=== PATIENT | male | born 1995 | race Caucasian/White ===

== ENCOUNTER 2017-06-22 14:14 | Emergency (ER) | payer BC ==
--- NOTE | 2017-06-22 16:12 | EDM.PDOC ---
ED HPI GENERAL MEDICAL PROBLEM - General Chief Complaint: Lower Extremity Injury/Pain Stated Complaint: LEFT LEG PAIN Time Seen by Provider: 06/22/17 16:02 Source of Information: Reports: Patient History Limitations: Reports: No Limitations - History of Present Illness INITIAL COMMENTS - FREE TEXT/NARRATIVE: History of present illness: []Patient works in [employer] and has some chronic low back pain. Today he noted sharp electrical pain going down his left medial thigh. He denies any trauma, numbness or tingling, incontinence or back pain at this time. He is ambulatory and is requesting a work release note. Review of systems: As per history of present illness and below otherwise all systems reviewed and negative. Past medical history: As per history of present illness and as reviewed below otherwise noncontributory. Surgical history: As per history of present illness and as reviewed below otherwise noncontributory. Social history: No reported history of drug or alcohol abuse. Family history: As per history of present illness and as reviewed below otherwise noncontributory. Physical exam: General: Well developed, well nourished in NAD HEENT: Atraumatic, normocephalic, pupils reactive, negative for conjunctival pallor or scleral icterus, mucous membranes moist, throat clear, neck supple, nontender, trachea midline. Lungs: Clear to auscultation, breath sounds equal bilaterally, chest nontender. Heart: S1S2, regular, negative for clicks, rubs, or JVD. Abdomen: Soft, nondistended, nontender. Negative for masses or hepatosplenomegaly. Negative for costovertebral tenderness. Pelvis: Stable nontender. Genitourinary: Deferred. Rectal: Deferred. Extremities: Atraumatic, negative for cords or calf pain. Neurovascular unremarkable. Neuro: Awake, alert, oriented. Cranial nerves II through XII unremarkable. Cerebellum unremarkable. Motor and sensory unremarkable throughout. Exam nonfocal. Diagnostics: [] Therapeutics: [] Impression: []Sciatica-left thigh Plan: []Ice low back and thigh 3 times a day for 20 minutes. Follow-up primary care physician requests physical therapy and take diclofenac twice a day for pain and inflammation. Definitive disposition and diagnosis as appropriate pending reevaluation and review of above. left lower extremity Pain Score (Numeric/FACES): 8 - Related Data Allergies Allergy/AdvReac Type Severity Reaction Status Date / Time No Known Allergies Allergy Verified 06/22/17 15:41 Home Meds: Home Meds Diclofenac Sodium [IJD: Diclofenac Sodium] 75 mg PO .TWICE DAILY W MEALS #20 tab.ec 06/22/17 [Rx] Past Medical History - Past Health History Medical/Surgical History: Denies Medical/Surgical History Gastrointestinal History: Reports: GERD, Other (See Below) Other Gastrointestinal History: EGD Endocrine/Metabolic History: Reports: Obesity/BMI 30+ - Past Surgical History Head Surgeries/Procedures: Reports: None Musculoskeletal Surgical History: Reports: Other (See Below) Social & Family History - Family History Family Medical History: Noncontributory - Tobacco Use Smoking Status *Q: Never Smoker Second Hand Smoke Exposure: No - Alcohol Use Days Per Week of Alcohol Use: 0 - Recreational Drug Use Recreational Drug Use: No Drug Use in Last 12 Months: No Review of Systems - Review of Systems Review Of Systems: See Below (See history of present illness) ED EXAM, GENERAL - Physical Exam Exam: See Below (See history of present illness) Course - Vital Signs Last Recorded V/S: Last Vital Signs Temp 37.1 C 06/22/17 14:20 Pulse 70 06/22/17 14:20 Resp 18 06/22/17 14:20 BP 156/76 H 06/22/17 14:20 Pulse Ox Departure - Departure Time of Disposition: 16:13 Disposition: Home, Self-Care 01 Condition: Good Clinical Impression: Sciatica of left side - Discharge Information Prescriptions: Diclofenac Sodium [IJD: Diclofenac Sodium] 75 mg PO .TWICE DAILY W MEALS #20 tab.ec Referrals: Fior Thomas NP [Primary Care Provider] - Forms: ED Department Discharge Additional Instructions: The following information is given to patients seen in the emergency department who are being discharged to home. This information is to outline your options for follow-up care. We provide all patients seen in our emergency department with a follow-up referral. The need for follow-up, as well as the timing and circumstances, are variable depending upon the specifics of your emergency department visit. If you don't have a primary care physician on staff, we will provide you with a referral. We always advise you to contact your personal physician following an emergency department visit to inform them of the circumstance of the visit and for follow-up with them and/or the need for any referrals to a consulting specialist. The emergency department will also refer you to a specialist when appropriate. This referral assures that you have the opportunity for follow-up care with a specialist. All of these measure are taken in an effort to provide you with optimal care, which includes your follow-up. Under all circumstances we always encourage you to contact your private physician who remains a resource for coordinating your care. When calling for follow-up care, please make the office aware that this follow-up is from your recent emergency room visit. If for any reason you are refused follow-up, please contact the [facility] Emergency Department at and asked to speak to the emergency department charge nurse. Ice low back, diclofenac for pain, follow up with her primary care physician for possible physical therapy [facility] [address] [place] [id number]
== END 2017-06-22 16:21 | disposition home or self-care (01) ==
LOC: MW.ED 14:14
CPT/HCPCS: 99282; 99283

== ENCOUNTER 2017-09-01 12:03 | Emergency (ER) | payer BC, OTHER ==
[2017-09-01] MEDS ORDERED: Proparacaine 0.5% Ophth Soln 15 ML Bottle EYERT SCH (12:45)
--- NOTE | 2017-09-01 12:54 | EDM.PDOC ---
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 He did try to irrigate this at work Review of Systems: As per history of present illness and below otherwise all systems reviewed and negative. Past medical history: As per history of present illness and as reviewed below otherwise noncontributory. Surgical history: As per history of present illness and as reviewed below otherwise noncontributory. Social history: No reported history of drug or alcohol abuse. Family history: As per history of present illness and as reviewed below otherwise noncontributory. Physical exam: Alert and oriented gentleman answering questions appropriately. Speaks in full sentences without any shortness of breath. Nontoxic appearance. HEENT: Atraumatic, normocehpalic, pupils reactive, negative for conjunctival pallor or scleral icterus, mucous membranes moist, throat clear, neck supple, nontender, trachea midline. Proparacaine drops actually flush to the foreign body out . Fluorescein strip was then utilized small abrasion noted to the 6 o' clock position shallow in nature . Lungs: Clear to auscultation, breath sounds equal bilaterally, chest non tender. Heart: S1S2, regular, negative for clicks, rubs, or JVD. Abdomen: Soft, nondistended, nontender. Negative for masses or hepatossplenmegaly. Negative for costovertebral tenderness. Pelvis: Stable nontender. Genitourinary: Deferred. Rectal: Deferred Extremities: Atraumatic, negative for cords or calf pain. Neurovascular unremarkable. Neuro: Awake, alert, oriented. Cranial nerves II through XII unremarkable. Cerebellum unremarkable. Motor and sensory unremarkable throughout. Exam nonfocal. Patient tolerated all procedures well Diagnostics: [] Therapeutics: [Proparacaine Drops] Impression: [Foreign body right eye Plan: []Discharge to home Gentamicin ointment 3 times a day Tylenol No. 3 May return to work Definitive disposition and diagnosis as appropriate pending reevaluation and review of above. Right Eye Pain Score (Numeric/FACES): 5 - Related Data Allergies Allergy/AdvReac Type Severity Reaction Status Date / Time No Known Allergies Allergy Verified 06/22/17 15:41 Home Meds: Home Meds Diclofenac Sodium [IJD: Diclofenac Sodium] 75 mg PO .TWICE DAILY W MEALS #20 tab.ec 06/22/17 [Rx] Gentamicin [Gentak 0.3% Ophth Oint] 3.5 gm EYERT TID #1 tube 09/01/17 [Rx] Past Medical History - Past Health History Medical/Surgical History: Denies Medical/Surgical History Gastrointestinal History: Reports: GERD, Other (See Below) Other Gastrointestinal History: EGD Endocrine/Metabolic History: Reports: Obesity/BMI 30+ - Infectious Disease History Infectious Disease History: Reports: Chicken Pox - Past Surgical History Head Surgeries/Procedures: Reports: None Social & Family History - Family History Family Medical History: Noncontributory - Tobacco Use Smoking Status *Q: Never Smoker Second Hand Smoke Exposure: No - Caffeine Use Caffeine Use: Reports: Soda - Alcohol Use Days Per Week of Alcohol Use: 0 - Recreational Drug Use Recreational Drug Use: No Drug Use in Last 12 Months: No ED ROS GENERAL - Review of Systems Review Of Systems: ROS reveals no pertinent complaints other than HPI. ED EXAM GENERAL W FULL EYE - Physical Exam Exam: See Below (See dictation) Course - Vital Signs Last Recorded V/S: Last Vital Signs Temp 37.0 C 09/01/17 12:28 Pulse 70 09/01/17 12:28 Resp 18 09/01/17 12:28 BP 141/80 H 09/01/17 12:28 Pulse Ox 98 09/01/17 12:28 - Orders/Labs/Meds Orders: Active Orders 24 hr Category Date Time Status Proparacaine [Proparacaine 0.5% Ophth Soln] Med 09/01/17 12:45 Active 2 ml EYERT STAT Medication Orders Proparacaine HCl (Proparacaine 0.5% Ophth Soln) 2 ml EYERT STAT YUNIER Meds: Medications Generic Name Dose Route Start Last Admin Trade Name Freq PRN Reason Stop Dose Admin Proparacaine HCl 2 ml 09/01/17 12:45 Proparacaine 0.5% Ophth Soln EYERT STAT YUNIER Departure - Departure Time of Disposition: 13:04 Disposition: Home, Self-Care 01 Condition: Good Clinical Impression: Corneal abrasion Qualifiers: Encounter type: initial encounter Laterality: right Qualified Code(s): S05.01XA - Injury of conjunctiva and corneal abrasion without foreign body, right eye, initial encounter Foreign body of right eye Qualifiers: Encounter type: initial encounter Qualified Code(s): T15.91XA - Foreign body on external eye, part unspecified, right eye, initial encounter - Discharge Information Prescriptions: Gentamicin [Gentak 0.3% Ophth Oint] 3.5 gm EYERT TID #1 tube Referrals: PCP,None [Primary Care Provider] - Additional Instructions: The following information is given to patients seen in the emergency department who are being discharged to home. This information is to outline your options for follow-up care. We provide all patients seen in our emergency department with a follow-up referral. The need for follow-up, as well as the timing and circumstances, are variable depending upon the specifics of your emergency department visit. If you don't have a primary care physician on staff, we will provide you with a referral. We always advise you to contact your personal physician following an emergency department visit to inform them of the circumstance of the visit and for follow-up with them and/or the need for any referrals to a consulting specialist. The emergency department will also refer you to a specialist when appropriate. This referral assures that you have the opportunity for followup care with a specialist. All of these measure are taken in an effort to provide you with optimal care, which includes your followup. Under all circumstances we always encourage you to contact your private physician who remains a resource for coordinating your care. When calling for followup care, please make the office aware that this follow-up is from your recent emergency room visit. If for any reason you are refused follow-up, please contact the [facility] emergency department at and asked to speak to the emergency department charge nurse. Your found to have an abrasion and a foreign body in you're either a foreign body has been flushed out with normal saline Small corneal abrasion we treated with an antibiotic ointment this has been electronically sent to [facility] Prescription of Tylenol No. 3 has one every 6 hours as needed for pain #15 has been handwritten Follow-up in 2 days with your primary care provider - My Orders Last 24 Hours: My Active Orders 09/01/17 12:45 Proparacaine [Proparacaine 0.5% Ophth Soln] 2 ml EYERT STAT - Assessment/Plan Last 24 Hours: My Active Orders 09/01/17 12:45 Proparacaine [Proparacaine 0.5% Ophth Soln] 2 ml EYERT STAT
[2017-09-01] MEDS ORDERED: Diphtheria,Pertussis(Acell),Tetanus Vaccine 0.5 ML Syringe IM ONE (13:05)
[2017-09-01 13:33] VITALS: BP 133/80
== END 2017-09-01 13:35 | disposition home or self-care (01) ==
LOC: MW.ED 12:03
DX: T15.01XA Foreign body in cornea, right eye, initial encounter (principal); Z23 Encounter for immunization
CPT/HCPCS: 90471; 90715; 99282; 99283-25

== ENCOUNTER 2019-01-18 12:01 | Emergency (ER) | payer BC, OTHER ==
[2019-01-18] MEDS ORDERED: Sodium Chloride 0.9% 1,000 ML IV ONE (12:05)
--- NOTE | 2019-01-18 12:06 | EDM.PDOC ---
ED HPI GENERAL MEDICAL PROBLEM - General Chief Complaint: Syncope Stated Complaint: fainting Time Seen by Provider: 01/18/19 12:06 Source of Information: Reports: Patient History Limitations: Reports: No Limitations - History of Present Illness INITIAL COMMENTS - FREE TEXT/NARRATIVE: HISTORY AND PHYSICAL: History of present illness: Patient is a 23-year-old male who presents to the emergency room after having 3 syncopal episodes this morning. He states he woke up with some epigastric pain and had walked down to talk to his mother. He had a syncopal episode in front of her. Reports he was talking and then felling into the dog dishes; was "out for a few seconds". Shortly after he had 2 additional syncopal episodes. All 3 episodes occurred within 15 minutes of each other, each lasting 3-5 seconds. After the incident he felt diaphoretic and generalized weakness. He was not incontinent of urine or stool. He denies any chest pain, shortness of breath, cough. Does have epigastric pain but has no nausea, vomiting, diarrhea or constipation. States he has been eating and drinking appropriately. Review of systems: As per history of present illness and below otherwise all systems reviewed and negative. Past medical history: As per history of present illness and as reviewed below otherwise noncontributory. Surgical history: As per history of present illness and as reviewed below otherwise noncontributory. Social history: See social history for further information Family history: As per history of present illness and as reviewed below otherwise noncontributory. Physical exam: General: Well-developed and well-nourished 23-year-old male. Alert and oriented. Nontoxic appearing and in no acute distress. HEENT: Nontender with palpations, no abnormalities noted, normocephalic, pupils equal and reactive bilaterally, negative for conjunctival pallor or scleral icterus, mucous membranes moist, TMs normal bilaterally, throat clear, neck supple, nontender, trachea midline. No drooling or trismus noted. No meningeal signs. No hot potato voice noted. Lungs: Clear to auscultation, breath sounds equal bilaterally, chest nontender. Heart: S1S2, regular rate and rhythm without overt murmur Abdomen: Soft, nondistended, nontender. Negative for masses or hepatosplenomegaly. Negative for costovertebral tenderness. Pelvis: Stable nontender. Genitourinary: Deferred. Rectal: Deferred. Skin: Intact, warm, dry. No lesions or rashes noted. Extremities: Moves all per self, negative for cords or calf pain. Neurovascular unremarkable. Neuro: Awake, alert, oriented. Cranial nerves II through XII unremarkable. Cerebellum unremarkable. Motor and sensory unremarkable throughout. Exam nonfocal. Notes: Patient reports approximately 5 months ago he did have a syncopal episode, did not seek medical attention for further evaluation. Today he is agreeable to diagnostics. He declines the need to any abdominal imagining, he states he has had this pain chronically, and does not feel the need to have this evaluated any further. Vital signs are stable. Lab work is unremarkable. Chest x-ray shows no evidence of pneumonia or infiltrate. Head CT is within normal limits, no acute intracranial abnormalities. This information was shared with the patient and mother at bedside. We discussed the possible need for a Holter monitor or further neurological workup through our neurologist. Both patient and mom voice understanding. I did offer admission which he declines. He states he will follow closely with his primary care provider next week, Sidra Thomas. Supportive care measures were reviewed and discussed. Voices understanding and is agreeable to plan of care. Denies any further questions or concerns at this time. Diagnostics: CBC, CMP, EKG, Head CT, Orthostatic Vitals, Orthostatic vitals Therapeutics: IV fluids Prescription: None Impression: Syncope Plan: 1. Increase your oral fluids. Slow position changes 2. As we discussed you may need to have a Holter monitor, this can be ordered by your primary care provider, Sidra Thomas. He may also want to consider following up with neurology. The number is listed in your discharge packet. Please your care provider on Saturday. 3. Return to the ED as needed and as discussed. Definitive disposition and diagnosis as appropriate pending reevaluation and review of above. Onset: Today abdominal Pain Score (Numeric/FACES): 5 - Related Data Allergies Allergy/AdvReac Type Severity Reaction Status Date / Time No Known Allergies Allergy Verified 01/18/19 12:03 Home Meds: Home Meds . [No Known Home Meds] 01/18/19 [History] Past Medical History - Past Health History Medical/Surgical History: Denies Medical/Surgical History Gastrointestinal History: Reports: GERD, Other (See Below) Other Gastrointestinal History: EGD Endocrine/Metabolic History: Reports: Obesity/BMI 30+ - Infectious Disease History Infectious Disease History: Reports: Chicken Pox - Past Surgical History Head Surgeries/Procedures: Reports: None Social & Family History - Family History Family Medical History: Noncontributory - Caffeine Use Caffeine Use: Reports: Soda ED ROS GENERAL - Review of Systems Review Of Systems: ROS reveals no pertinent complaints other than HPI. - Physical Exam Exam: See Below (See dictation) Course - Vital Signs Last Recorded V/S: Last Vital Signs Temp 96.8 F 01/18/19 12:03 Pulse 101 H 01/18/19 12:03 Resp 18 01/18/19 12:03 BP 131/72 01/18/19 12:03 Pulse Ox 99 01/18/19 12:03 Orthostatic Blood Pressure [ 112/41 Standing] Orthostatic Blood Pressure [ 148/73 Sitting] Orthostatic Blood Pressure [ 121/58 Supine] - Orders/Labs/Meds Orders: Active Orders 24 hr Category Date Time Status EKG Documentation Completion [RC] STAT Care 01/18/19 12:05 Active Orthostatic Vital Signs [RC] ASDIRECTED Care 01/18/19 12:05 Active UA RFX ADÁN AND CULT IF INDIC [URIN] Stat Lab 01/18/19 12:28 Ordered Labs: Laboratory Tests 01/18/19 01/18/19 01/18/19 Range/Units 12:24 12:24 12:24 WBC 9.85 (4.0-11.0) K/uL RBC 5.27 (4.50-5.90) M/uL Hgb 15.3 (13.0-17.0) g/dL Hct 45.5 (38.0-50.0) % MCV 86.3 (80.0-98.0) fL MCH 29.0 (27.0-32.0) pg MCHC 33.6 (31.0-37.0) g/dL RDW Std Deviation 41.1 (28.0-62.0) fl RDW Coeff of Isabella 13 (11.0-15.0) % Plt Count 225 (150-400) K/uL MPV 10.70 (7.40-12.00) fL Neut % (Auto) 81.6 H (48.0-80.0) % Lymph % (Auto) 7.2 L (16.0-40.0) % Sibley % (Auto) 9.5 (0.0-15.0) % Eos % (Auto) 1.4 (0.0-7.0) % Baso % (Auto) 0.3 (0.0-1.5) % Neut # (Auto) 8.0 H (1.4-5.7) K/uL Lymph # (Auto) 0.7 (0.6-2.4) K/uL Sibley # (Auto) 0.9 H (0.0-0.8) K/uL Eos # (Auto) 0.1 (0.0-0.7) K/uL Baso # (Auto) 0.0 (0.0-0.1) K/uL Nucleated RBC % 0.0 /100WBC Nucleated RBCs # 0 K/uL Sodium 136 (136-148) mmol/L Potassium 4.2 (3.5-5.1) mmol/L Chloride 103 (98-107) mmol/L Carbon Dioxide 26.2 (21.0-32.0) mmol/L BUN 20 H (7.0-18.0) mg/dL Creatinine 1.1 (0.8-1.3) mg/dL Est Cr Clr Drug Dosing 108.76 mL/min Estimated GFR (MDRD) > 60.0 ml/min Glucose 121 H (74-106) mg/dL Calcium 9.2 (8.5-10.1) mg/dL Total Bilirubin 0.7 (0.2-1.0) mg/dL AST 23 (15-37) IU/L ALT 53 (14-63) IU/L Alkaline Phosphatase 85 (46-116) U/L Total Protein 7.4 (6.4-8.2) g/dL Albumin 4.0 (3.4-5.0) g/dL Globulin 3.4 (2.6-4.0) g/dL Albumin/Globulin Ratio 1.2 (0.9-1.6) Lipase 78 (73-393) U/L H. pylori IgG Antibody NEGATIVE (NEG) Meds: Medications Discontinued Medications Generic Name Dose Route Start Last Admin Trade Name Freq PRN Reason Stop Dose Admin Al Hydroxide/Mg Hydroxide 15 0 ml 01/18/19 12:55 01/18/19 13:21 ml/ Metoclopramide HCl 5 mg/ PO 01/18/19 12:56 5 each Lidocaine HCl 5 ml ONETIME ONE Administration Sodium Chloride 1,000 mls @ 999 mls/hr 01/18/19 12:05 01/18/19 12:27 Normal Saline IV 01/18/19 13:05 999 mls/hr STAT ONE Administration Departure - Departure Time of Disposition: 13:54 Disposition: Home, Self-Care 01 Clinical Impression: Syncope - Discharge Information Instructions: Syncope, [id number] Referrals: Fior Thomas NP [Primary Care Provider] - Forms: ED Department Discharge Additional Instructions: The following information is given to patients seen in the emergency department who are being discharged to home. This information is to outline your options for follow-up care. We provide all patients seen in our emergency department with a follow-up referral. The need for follow-up, as well as the timing and circumstances, are variable depending upon the specifics of your emergency department visit. If you don't have a primary care physician on staff, we will provide you with a referral. We always advise you to contact your personal physician following an emergency department visit to inform them of the circumstance of the visit and for follow-up with them and/or the need for any referrals to a consulting specialist. The emergency department will also refer you to a specialist when appropriate. This referral assures that you have the opportunity for follow-up care with a specialist. All of these measure are taken in an effort to provide you with optimal care, which includes your follow-up. Under all circumstances we always encourage you to contact your private physician who remains a resource for coordinating your care. When calling for follow-up care, please make the office aware that this follow-up is from your recent emergency room visit. If for any reason you are refused follow-up, please contact the [facility] Emergency Department at and asked to speak to the emergency department charge nurse. [facility] [address] [place] [address] [id number] [address] [id number] 1. Increase your oral fluids. Slow position changes 2. As we discussed you may need to have a Holter monitor, this can be ordered by your primary care provider, Sidra Thomas. He may also want to consider following up with neurology. The number is listed in your discharge packet. Please your care provider on Saturday. 3. Return to the ED as needed and as discussed. - My Orders Last 24 Hours: My Active Orders 01/18/19 12:05 EKG Documentation Completion [RC] STAT Orthostatic Vital Signs [RC] ASDIRECTED 01/18/19 12:28 UA RFX ADÁN AND CULT IF INDIC [URIN] Stat - Assessment/Plan Last 24 Hours: My Active Orders 01/18/19 12:05 EKG Documentation Completion [RC] STAT Orthostatic Vital Signs [RC] ASDIRECTED 01/18/19 12:28 UA RFX ADÁN AND CULT IF INDIC [URIN] Stat
[2019-01-18 12:54] LABS: CHLORIDE,CL 103 mmol/L (98-107); SODIUM,NA 136 mmol/L (136-148)
[2019-01-18] MEDS ORDERED: Alum Hydrox/Mag Hydrox/Simeth 15 ML, Metoclopramide 5 MG, Lidocaine 2% 5 ML PO ONE ×3 (12:55)
--- NOTE | 2019-01-18 13:51 | CT ---
INDICATION: Syncopal episodes. TECHNIQUE: Noncontrast axial images. Coronal and sagittal reconstructions. COMPARISON: None. FINDINGS: No abnormal intracranial mass effect or midline shift. No intracranial hemorrhage. No abnormal areas of attenuation within the brain. CSF spaces are age-appropriate. No acute osseous abnormality. Visualized portions of the paranasal sinuses are clear. The mastoids are clear. IMPRESSION: No CT evidence of an acute intracranial abnormality. Dictated by Lenard Sanabria MD @ 01/18/2019 1:48:48 PM Please note that all CT scans at this facility use dose modulation, iterative reconstruction, and/or weight-based dosing when appropriate to reduce radiation dose to as low as reasonably achievable. Dictated by: Lenard Sanabria MD @ 01/18/2019 13:49:13 (Electronically Signed)
[2019-01-18 14:23] VITALS: BP 117/49
== END 2019-01-18 14:23 | disposition home or self-care (01) ==
LOC: MW.ED 12:01
DX: R55 Syncope and collapse (principal)
CPT/HCPCS: 36415; 70450; 80053; 83690; 85025; 86677; 93005; 96360; 96361; 99284; A9270; J7040

== ENCOUNTER 2020-10-07 22:24 | Emergency (ER) | payer BC ==
[2020-10-07] MEDS ORDERED: Ondansetron 4 MG/2 ML SDV IVPUSH ONE (22:42)
[2020-10-07] MEDS ORDERED: Sodium Chloride 0.9% 10 ML Syringe FLUSH PRN (22:42)
[2020-10-07] MEDS ORDERED: Sodium Chloride 0.9% 1,000 ML IV ONE (22:42)
[2020-10-07] MEDS ORDERED: Ibuprofen 400 MG Tab PO ONE (22:42)
[2020-10-07] MEDS ORDERED: Sodium Chloride 0.9% 2.5 ML Syringe FLUSH PRN (22:42)
[2020-10-07] MEDS ORDERED: Acetaminophen 500 MG Tab PO ONE (22:43)
--- NOTE | 2020-10-07 22:55 | EDM.PDOC ---
ED HPI GENERAL MEDICAL PROBLEM - General Chief Complaint: Fever Stated Complaint: FEVER, VOMITTING Time Seen by Provider: 10/07/20 22:33 - History of Present Illness INITIAL COMMENTS - FREE TEXT/NARRATIVE: HISTORY AND PHYSICAL: History of present illness: This is a 25-year-old gentleman with no significant past medical history presents ER today secondary to fever x2 days. Patient reports that he went to the clinic yesterday and had a coronavirus test which was negative. Patient reports his influenza test was also negative. Patient reports that he was started on Flexeril secondary to his headaches. Patient reports that he is been taking ibuprofen 400 mg for his fever. Patient's last dose was approximately 10 PM this evening. Patient reports he had yellow productive cough with posttussive emesis. Patient reports that his emesis is usually phlegm. Patient denies any diarrhea. Patient reports he has had some mild constipation. Patient denies any abdominal pain or chest pain. Patient denies any sore throat or ear pain. Patient denies any dysuria, frequency, urgency, rash. Patient has any chest pain or abdominal pain. Review of systems: As per history of present illness and below otherwise all systems reviewed and negative. Past medical history: As per history of present illness and as reviewed below otherwise noncontributory. Surgical history: As per history of present illness and as reviewed below otherwise noncontributory. Social history: No reported history of drug or alcohol abuse. Family history: As per history of present illness and as reviewed below otherwise noncontributory. Physical exam: Constitutional: Patient is oriented to person, place, and time. Appears well- developed and well-nourished. No distress. HEENT: Moist mucous membranes, oropharynx clear without any exudates or erythema. Neck supple, no nuchal rigidity, no photophobia, no Kernig's sign or Brudzinski sign, patient does not present with signs or symptoms of be consistent with meningitis. Head: Normocephalic and atraumatic Eyes: Right eye exhibits no discharge. Left eye exhibits no discharge. No scleral icterus. Neck: Normal range of motion. No tracheal deviation present. Cardiovascular: Normal rate and regular rhythm. Pulmonary: Effort normal, no respiratory distress. No wheezing rales or rhonchi Neck supple, no nuchal rigidity, no photophobia, no Kernig's sign or Brudzinski sign, patient does not present with signs or symptoms of be consistent with meningitis. Musculoskeletal: Normal range of motion Neurologic: Alert and oriented to person, place and time. Skin: [place], warm and dry. Psychiatric: Normal mood and affect. Behavior is normal. Judgment and thought content normal. Nursing note and vital signs have been reviewed Diagnostics: CBC, CMP, chest x-ray Therapeutics: NSS x1 L Zofran 4 mg IV Tylenol 1 g p.o. Ibuprofen 400 mg p.o. Assessment and plan: Is a 25-year-old gentleman who presents ER today secondary to fevers, cough, congestion. Patient had a coronavirus test that was negative yesterday as well as influenza test that was negative yesterday. Patient reports that he does feel dehydrated. Patient was given 1 L of normal saline we will check his electrolytes as well as CBC. Patient will have a chest x-ray obtained. Patient be given antiemetics including Tylenol and an additional 400 mg of ibuprofen. Patient is clinically hemodynamically stable. Patient's labs were within normal limits. Patient's chest x-ray does not show any clear infiltrate. Question early infiltrate in the right middle lobe. Patient be started on a Z-[place]. Reassessment at the time of disposition demonstrates that the patient is in no acute distress. The patient has remained stable throughout the entire ED visit and is without objective evidence for acute process requiring urgent intervention or hospitalization. The patient is stable for discharge, counseling is provided as documented above, discussed symptomatic treatment and specific conditions for return. I have spoken with the patient/caregiver and discussed todays findings, in addition to providing specific details for the plan of care. Questions are answered and there is agreement with the plan. Definitive disposition and diagnosis as appropriate pending reevaluation and review of above. Generalized Pain Score (Numeric/FACES): 4 - Related Data Allergies Allergy/AdvReac Type Severity Reaction Status Date / Time No Known Allergies Allergy Verified 10/07/20 22:38 Home Meds: Home Meds Azithromycin [Zithromax] 250 mg PO DAILY #4 tablet 10/07/20 [Rx] Past Medical History - Past Health History Medical/Surgical History: Denies Medical/Surgical History HEENT History: Reports: None Cardiovascular History: Reports: None Respiratory History: Reports: None Gastrointestinal History: Reports: GERD, Other (See Below) Other Gastrointestinal History: EGD Genitourinary History: Reports: None Musculoskeletal History: Reports: None Neurological History: Reports: None Psychiatric History: Reports: None Endocrine/Metabolic History: Reports: Obesity/BMI 30+ Hematologic History: Reports: None Immunologic History: Reports: None Oncologic (Cancer) History: Reports: None Dermatologic History: Reports: None - Infectious Disease History Infectious Disease History: Reports: Chicken Pox - Past Surgical History Head Surgeries/Procedures: Reports: None HEENT Surgical History: Reports: None Cardiovascular Surgical History: Reports: None Respiratory Surgical History: Reports: None Male Surgical History: Reports: None Neurological Surgical History: Reports: None Musculoskeletal Surgical History: Reports: Other (See Below) Oncologic Surgical History: Reports: None Dermatological Surgical History: Reports: None Social & Family History - Family History Family Medical History: Noncontributory - Tobacco Use Tobacco Use Status *Q: Never Tobacco User Second Hand Smoke Exposure: No - Caffeine Use Caffeine Use: Reports: Soda - Recreational Drug Use Recreational Drug Use: No ED ROS GENERAL - Review of Systems Review Of Systems: See Below ED EXAM, GENERAL - Physical Exam Exam: See Below Course - Vital Signs Last Recorded V/S: Last Vital Signs Temp 101.6 F H 10/07/20 22:34 Pulse 120 H 10/07/20 22:34 Resp 18 10/07/20 22:34 BP 147/90 H 10/07/20 22:34 Pulse Ox 95 10/07/20 22:34 - Orders/Labs/Meds Orders: Active Orders 24 hr Category Date Time Status Azithromycin [Zithromax] Med 10/07/20 23:26 Once 500 mg PO Q24H ONE Sodium Chloride 0.9% [Normal Saline] 1,000 ml Med 10/07/20 22:42 Active IV .Bolus Sodium Chloride 0.9% [Saline Flush] Med 10/07/20 22:42 Active 10 ml FLUSH ASDIRECTED PRN Sodium Chloride 0.9% [Saline Flush] Med 10/07/20 22:42 Active 2.5 ml FLUSH ASDIRECTED PRN Saline Lock Insert [OM.PC] Stat Oth 10/07/20 22:42 Ordered Medication Orders Sodium Chloride (Normal Saline) 1,000 mls @ 999 mls/hr IV .Bolus ONE Stop: 10/07/20 23:42 Last Admin: 10/07/20 22:56 Dose: 999 mls/hr Documented by: [email or web address] Sodium Chloride (Saline Flush) 10 ml FLUSH ASDIRECTED PRN PRN Reason: Keep Vein Open Last Admin: 10/07/20 22:57 Dose: 10 ml Documented by: [email or web address] Sodium Chloride (Saline Flush) 2.5 ml FLUSH ASDIRECTED PRN PRN Reason: Keep Vein Open Last Admin: 10/07/20 22:57 Dose: 2.5 ml Documented by: [email or web address] Labs: Laboratory Tests 10/07/20 10/07/20 Range/Units 22:45 22:45 WBC 4.77 (4.0-11.0) K/uL RBC 5.11 (4.50-5.90) M/uL Hgb 14.5 (13.0-17.0) g/dL Hct 44.3 (38.0-50.0) % MCV 86.7 (80.0-98.0) fL MCH 28.4 (27.0-32.0) pg MCHC 32.7 (31.0-37.0) g/dL RDW Std Deviation 42.9 (28.0-62.0) fl RDW Coeff of [place]abella 14 (11.0-15.0) % Plt Count 182 (150-400) K/uL MPV 10.50 (7.40-12.00) fL Neut % (Auto) 58.1 (48.0-80.0) % Lymph % (Auto) 24.3 (16.0-40.0) % [place] % (Auto) 16.8 H (0.0-15.0) % Eos % (Auto) 0.6 (0.0-7.0) % Baso % (Auto) 0.2 (0.0-1.5) % Neut # (Auto) 2.8 (1.4-5.7) K/uL Lymph # (Auto) 1.2 (0.6-2.4) K/uL [place] # (Auto) 0.8 (0.0-0.8) K/uL Eos # (Auto) 0.0 (0.0-0.7) K/uL Baso # (Auto) 0.0 (0.0-0.1) K/uL Nucleated RBC % 0.0 /100WBC Nucleated RBCs # 0 K/uL Sodium 138 (136-148) mmol/L Potassium 3.7 (3.5-5.1) mmol/L Chloride 103 (98-107) mmol/L Carbon Dioxide 27.2 (21.0-32.0) mmol/L BUN 19 H (7.0-18.0) mg/dL Creatinine 1.3 (0.8-1.3) mg/dL Est Cr Clr Drug Dosing 90.47 mL/min Estimated GFR (MDRD) > 60.0 ml/min Glucose 121 H (74-106) mg/dL Calcium 8.5 (8.5-10.1) mg/dL Total Bilirubin 0.3 (0.2-1.0) mg/dL AST 35 (15-37) IU/L ALT 54 (14-63) IU/L Alkaline Phosphatase 71 (46-116) U/L Total Protein 7.2 (6.4-8.2) g/dL Albumin 3.9 (3.4-5.0) g/dL Globulin 3.3 (2.6-4.0) g/dL Albumin/Globulin Ratio 1.2 (0.9-1.6) Meds: Medications Generic Name Dose Route Start Last Admin Trade Name Freq PRN Reason Stop Dose Admin Sodium Chloride 1,000 mls @ 999 mls/hr 10/07/20 22:42 10/07/20 22:56 Normal Saline IV 10/07/20 23:42 999 mls/hr .Bolus ONE Administration Sodium Chloride 10 ml 10/07/20 22:42 10/07/20 22:57 Saline Flush FLUSH 10 ml ASDIRECTED PRN Administration Keep Vein Open Sodium Chloride 2.5 ml 10/07/20 22:42 10/07/20 22:57 Saline Flush FLUSH 2.5 ml ASDIRECTED PRN Administration Keep Vein Open Discontinued Medications Generic Name Dose Route Start Last Admin Trade Name Freq PRN Reason Stop Dose Admin Acetaminophen 1,000 mg 10/07/20 22:43 10/07/20 22:56 Tylenol Extra Strength PO 10/07/20 22:44 1,000 mg ONETIME ONE Administration Ibuprofen 400 mg 10/07/20 22:42 10/07/20 22:56 Motrin PO 10/07/20 22:43 400 mg ONETIME ONE Administration Ondansetron HCl 4 mg 10/07/20 22:42 10/07/20 22:56 Zofran IVPUSH 10/07/20 22:43 4 mg ONETIME ONE Administration Departure - Departure Time of Disposition: 23:27 Disposition: Home, Self-Care 01 Condition: Good Clinical Impression: Upper respiratory infection - Discharge Information Prescriptions: Azithromycin [Zithromax] 250 mg PO DAILY #4 tablet Instructions: Upper Respiratory Infection, Adult, [id number] Referrals: Timur Wang MD [Primary Care Provider] - Forms: ED Department Discharge Additional Instructions: You were seen and evaluated in the ER today secondary to your fever and cough. Your symptoms are most likely secondary to a viral upper respiratory infection. Your chest x-ray did not show any clear infiltrate. This may be an early pneumonia that is not manifested yet on the x-ray. You will be started on Zithromax as an antibiotic to help you with your infection. Please return to the ER if you have any increased shortness of breath or any other concerns. The following information is given to patients seen in the emergency department who are being discharged to home. This information is to outline your options for follow-up care. We provide all patients seen in our emergency department with a follow-up referral. The need for follow-up, as well as the timing and circumstances, are variable depending upon the specifics of your emergency department visit. If you don't have a primary care physician on staff, we will provide you with a referral. We always advise you to contact your personal physician following an emergency department visit to inform them of the circumstance of the visit and for follow-up with them and/or the need for any referrals to a consulting specialist. The emergency department will also refer you to a specialist when appropriate. This referral assures that you have the opportunity for follow-up care with a specialist. All of these measure are taken in an effort to provide you with optimal care, which includes your follow-up. Under all circumstances we always encourage you to contact your private physician who remains a resource for coordinating your care. When calling for follow-up care, please make the office aware that this follow-up is from your recent emergency room visit. If for any reason you are refused follow-up, please contact the [facility] Emergency Department at and asked to speak to the emergency department charge nurse. [facility] - Primary [facility] [address], [place] [address] [facility] [address] [place] [address] Sepsis Event Note (ED) - Evaluation Sepsis Screening Result: Possible Sepsis Risk - Focused Exam Vital Signs: Vital Signs Temp Pulse Resp BP Pulse Ox 10/07/20 22:34 101.6 F H 120 H 18 147/90 H 95 - My Orders Last 24 Hours: My Active Orders 10/07/20 22:42 Sodium Chloride 0.9% [Normal Saline] 1,000 ml IV .Bolus Sodium Chloride 0.9% [Saline Flush] 10 ml FLUSH ASDIRECTED PRN Sodium Chloride 0.9% [Saline Flush] 2.5 ml FLUSH ASDIRECTED PRN Saline Lock Insert [OM.PC] Stat 10/07/20 23:26 Azithromycin [Zithromax] 500 mg PO Q24H ONE - Assessment/Plan Last 24 Hours: My Active Orders 10/07/20 22:42 Sodium Chloride 0.9% [Normal Saline] 1,000 ml IV .Bolus Sodium Chloride 0.9% [Saline Flush] 10 ml FLUSH ASDIRECTED PRN Sodium Chloride 0.9% [Saline Flush] 2.5 ml FLUSH ASDIRECTED PRN Saline Lock Insert [OM.PC] Stat 10/07/20 23:26 Azithromycin [Zithromax] 500 mg PO Q24H ONE
[2020-10-07 23:17] LABS: BLOOD UREA NITROGEN,BUN 19 mg/dL (7.0-18.0); CARBON DIOXIDE,CO2 27.2 mmol/L (21.0-32.0); CHLORIDE,CL 103 mmol/L (98-107); GLUCOSE RANDOM 121 mg/dL (74-106); POTASSIUM,K 3.7 mmol/L (3.5-5.1); SODIUM,NA 138 mmol/L (136-148)
--- NOTE | 2020-10-07 23:19 | CR ---
INDICATION: Fever COMPARISON: None available. FINDINGS: PA and lateral views of the chest were obtained. The lungs are clear. No focal or diffuse infiltrates are present. The heart is normal in size. The mediastinum is normal in appearance. The osseous structures are normal in appearance for the patient`s age. IMPRESSION: Normal chest 2 views. Dictated by Moses Ordaz MD @ Oct 07 2020 11:17PM Signed by Dr. Moses Ordaz @ Oct 07 2020 11:18PM
[2020-10-07] MEDS ORDERED: Azithromycin 250 MG Tab PO ONE (23:26)
[2020-10-07 23:50] VITALS: BP 105/56; PULSE 86
== END 2020-10-08 | disposition home or self-care (01) ==
LOC: MW.ED 22:24
DX: J06.9 Acute upper respiratory infection, unspecified (principal); E66.9 Obesity, unspecified; Z68.37 Body mass index [BMI] 37.0-37.9, adult
CPT/HCPCS: 36415; 71046; 80053; 85025; 96374; 99283; A9270; J2405; J7030

== ENCOUNTER 2023-08-16 23:09 | Emergency (ER) | payer BC ==
[2023-08-16] MEDS ORDERED: Ibuprofen 600 MG Tab PO ONE (23:57)
[2023-08-17 00:36] LABS: BASOPHILS ABSOLUTE AUTO 0.1 K/uL (0.0-0.1); BASOPHILS PERCENT AUTO 0.5 % (0.0-1.5); EOSINOPHILS ABSOLUTE AUTO 0.4 K/uL (0.0-0.7); EOSINOPHILS PERCENT AUTO 3.6 % (0.0-7.0); HEMATOCRIT 44.1 % (38.0-50.0); HEMOGLOBIN 14.5 g/dL (13.0-17.0); LYMPHOCYTES ABSOLUTE AUTO 3.2 K/uL (0.6-2.4); LYMPHOCYTES PERCENT AUTO 28.8 % (16.0-40.0); MEAN CORPUSCULAR HEMOGLOBIN 28.1 pg (27.0-32.0); MEAN CORPUSCULAR HGB CONC 32.9 g/dL (31.0-37.0); MEAN CORPUSCULAR VOLUME 85.5 fL (80.0-98.0); MONOCYTES ABSOLUTE AUTO 1.1 K/uL (0.0-0.8); MONOCYTES PERCENT AUTO 9.6 % (0.0-15.0); NEUTROPHILS ABSOLUTE AUTO 6.4 K/uL (1.4-5.7); NEUTROPHILS PERCENT AUTO 57.5 % (48.0-80.0); PLATELET COUNT,PLT 269 K/uL (150-400); RED BLOOD CELL COUNT 5.16 M/uL (4.50-5.90); WHITE BLOOD CELL COUNT,WBC 11.15 K/uL (4.0-11.0)
[2023-08-17 01:19] LABS: A/G RATIO 1.2 (0.9-1.6); ALBUMIN 4.1 g/dL (3.4-5.0); BILIRUBIN TOTAL 0.4 mg/dL (0.2-1.0); CALCIUM 8.9 mg/dL (8.5-10.1); CARBON DIOXIDE,CO2 27.2 mmol/L (21.0-32.0); CREATININE 1.1 mg/dL (0.8-1.3); EST CRCL DRUG DOSING (CG) 104.15 mL/min; POTASSIUM,K 3.7 mmol/L (3.5-5.1); PROTEIN TOTAL,TP 7.5 g/dL (6.4-8.2)
[2023-08-17 02:18] VITALS: BP 124/65; PULSE 65
== END 2023-08-17 02:18 | disposition home or self-care (01) ==
LOC: MW.ED 23:09
DX: R07.89 Other chest pain (principal); E66.9 Obesity, unspecified; Z68.41 Body mass index [BMI] 40.0-44.9, adult
CPT/HCPCS: 36415; 71045; 80053; 84484; 85025; 85379; 93005; 99285; A9270; 93010; 99283